=== PATIENT | male | born 1975 | race Caucasian/White ===

== ENCOUNTER 2019-12-26 01:35 | Emergency (ER) | payer OTHER ==
[~2019-12-26] VITALS: Ht 183 cm; Wt 66.0 kg
[2019-12-26 02:30] LABS: BASOPHILS # (AUTO) 0.1 10^3/uL (0.0-0.1); BASOPHILS % (AUTO) 0 % (0-10); EOSINOPHILS # (AUTO) 0.4 10^3/uL (0.0-0.3); EOSINOPHILS % (AUTO) 3 % (0-10); HEMATOCRIT 45 % (40-54); HEMOGLOBIN 15.4 g/dL (13.3-17.7); LYMPHOCYTES % (AUTO) 23 % (12-44); MEAN CORPUSCULAR HEMOGLOBIN 30 pg (25-34); MEAN CORPUSCULAR HGB CONC 34 g/dL (32-36); MEAN CORPUSCULAR VOLUME 87 fL (80-99); MEAN PLATELET VOLUME 8.5 fL (9.0-12.2); MONOCYTES # (AUTO) 0.9 10^3/uL (0.0-1.0); MONOCYTES % (AUTO) 5 % (0-12); NEUTROPHILS # (AUTO) 12.1 10^3/uL (1.8-7.8); NEUTROPHILS % (AUTO) 69 % (42-75); PLATELET COUNT 230 10^3/uL (130-400); WHITE BLOOD COUNT 17.6 10^3/uL (4.3-11.0)
[2019-12-26 02:33] LABS: CLARITY,URINE CLOUDY; COLOR,URINE RED; GLUCOSE, URINE (UA) NEGATIVE (NEGATIVE); KETONES,URINE NEGATIVE (NEGATIVE); LEUKOCYTE ESTERASE ,URINE NEGATIVE (NEGATIVE); NITRITE,URINE NEGATIVE (NEGATIVE); PH,URINE 5.5 (5-9); PROTEIN,URINE 1+ (NEGATIVE)
[2019-12-26 02:35] LABS: ALBUMIN 4.3 GM/DL (3.2-4.5); CHLORIDE 103 MMOL/L (98-107); POTASSIUM 3.3 MMOL/L (3.6-5.0); SODIUM 137 MMOL/L (135-145)
[2019-12-26] MEDS ORDERED: LACTATED RINGERS 1,000 ML IV ONE (02:35)
[2019-12-26 02:36] LABS: CALCIUM 8.7 MG/DL (8.5-10.1)
[2019-12-26 02:37] LABS: GLUCOSE 113 MG/DL (70-105)
[2019-12-26 02:38] LABS: TOTAL PROTEIN 6.9 GM/DL (6.4-8.2)
[2019-12-26 02:39] LABS: BACTERIA,URINE NEGATIVE /HPF; RBC,URINE TNTC /HPF
[2019-12-26 02:39] LABS: BILIRUBIN,TOTAL 0.3 MG/DL (0.1-1.0); CARBON DIOXIDE 23 MMOL/L (21-32)
[2019-12-26 02:41] LABS: ALKALINE PHOSPHATASE 106 U/L (40-136); CREATININE SERUM 0.94 MG/DL (0.60-1.30); GFR ESTIMATED > 60
[2019-12-26 02:42] LABS: BUN/CREATININE RATIO 18
[2019-12-26 02:44] LABS: ALANINE AMINOTRANSFERASE 34 U/L (0-55); LIPASE 31 U/L (8-78)
[2019-12-26] MEDS ORDERED: KETOROLAC 30 MG/ML VIAL IVP ONE (02:45)
[2019-12-26] MEDS ORDERED: ONDANSETRON 4 MG/2 ML (SDV) Z0FRAN IVP ONE (02:45)
[2019-12-26 02:48] LABS: NEUTROPHILS % (MANUAL) 69 %
[2019-12-26 02:49] LABS: EOSINOPHILS % (MANUAL) 1 %; LYMPHOCYTES % (MANUAL) 27 %; MONOCYTES % (MANUAL) 3 %; RBC MORPH NORMAL
[2019-12-26] MEDS ORDERED: ACHD5005 PO (03:57)
[2019-12-26] MEDS ORDERED: ONDA4TAB11 PO (03:57)
--- NOTE | 2019-12-26 03:59 | ED GU-Male ---
General Chief Complaint: Back Problems Stated Complaint: RT SIDE PAIN, VOMITING Nursing Triage Note: CONSTANT DULL RIGHT FLANK PAIN X2 DAYS. NO INJURY. Source: patient Exam Limitations: no limitations History of Present Illness Date Seen by Provider: Dec 26, 2019 Time Seen by Provider: 01:41 Initial Comments This 44-year-old gentleman presents to the emergency room with right flank pain that has been worsening for about 3 days. He developed hematuria tonight. He is afebrile. Denies respiratory symptoms. He has no history of renal stones. He has associated nausea and vomiting. Allergies and Home Medications Allergies Coded Allergies: No Known Drug Allergies (Unverified , 12/26/19) Home Medications Hydrocodone/Acetaminophen 1 Each Tablet, 1 EACH PO Q4H PRN for PAIN-MODERATE (5- 7) Prescribed by: NATY KAISER on 12/26/19 0358 Ondansetron 4 Mg Tab.rapdis, 4 MG PO Q4H PRN for NAUSEA/VOMITING Prescribed by: NATY KAISER on 12/26/19 0357 Patient Home Medication List Home Medication List Reviewed: Yes Review of Systems Review of Systems Constitutional: no symptoms reported EENTM: no symptoms reported Respiratory: no symptoms reported Cardiovascular: no symptoms reported Gastrointestinal: see HPI Genitourinary: see HPI Musculoskeletal: no symptoms reported Skin: no symptoms reported Psychiatric/Neurological: No Symptoms Reported Endocrine: No Symptoms Reported Hematologic/Lymphatic: No Symptoms Reported Past Qvhryxy-Ndclfw-Excgku Hx Past Med/Social Hx: Reviewed Nursing Past Med/Soc Hx Patient Social History Alcohol Use: Occasionally Uses Alcohol Beverage of Choice: Vodka Recreational Drug Use: No Smoking Status: Current Someday Smoker Type Used: Cigars 2nd Hand Smoke Exposure: Yes Recent Foreign Travel: No Contact w/Someone Who Travel: No Recent Infectious Disease Expo: No Recent Hopitalizations: No Immunizations Up To Date Tetanus Booster (TDap): Unknown Seasonal Allergies Seasonal Allergies: No Past Medical History Surgeries: Yes Orthopedic Respiratory: No Cardiac: No Neurological: No Genitourinary: No Gastrointestinal: No Musculoskeletal: No Endocrine: No HEENT: No Cancer: No Psychosocial: No Integumentary: No Blood Disorders: No Physical Exam Vital Signs Vital Signs - First Documented 12/26/19 01:48 Temp 37.0 Pulse 64 Resp 16 B/P (MAP) 143/94 (110) Pulse Ox 99 O2 Delivery Room Air Capillary Refill : Less Than 3 Seconds Height, Weight, BMI Height: '" Weight: lbs. oz. kg; 19.00 BMI Method: General Appearance: WD/WN, no apparent distress HEENT: normal ENT inspection Neck: normal inspection Cardiovascular: regular rate, rhythm, no edema, no murmur Respiratory: lungs clear, normal breath sounds, no respiratory distress Gastrointestinal: normal bowel sounds, soft; No distended, No guarding; tenderness (right flank) Back: normal inspection Extremities: normal inspection, no pedal edema Neurologic/Psychiatric: printed circuit board panels plater II-XII nml as tested, no motor/sensory deficits, alert, normal mood/affect, oriented x 3 Skin: normal color, warm/dry Progress/Results/Core Measures Suspected Sepsis Recent Fever Within 48 Hours: No Infection Criteria Present: None New/Unexplained Altered Menta: No Sepsis Screen: No Definite Risk SIRS Temperature: Pulse: 64 Respiratory Rate: 16 Laboratory Tests 12/26/19 01:55: White Blood Count 17.6H Blood Pressure 143 /94 Mean: 110 Laboratory Tests 12/26/19 01:55: Creatinine 0.94, Platelet Count 230, Total Bilirubin 0.3 Results/Orders Lab Results Laboratory Tests Test 12/26/19 01:53 12/26/19 01:55 Range/Units Urine Color RED H Urine Clarity CLOUDY Urine pH 5.5 5-9 Urine Specific [place] 1.025 H 1.016-1.022 Urine Protein 1+ H NEGATIVE Urine Glucose (UA) NEGATIVE NEGATIVE Urine Ketones NEGATIVE NEGATIVE Urine Nitrite NEGATIVE NEGATIVE Urine Bilirubin 1+ H NEGATIVE Urine Urobilinogen 1.0 < = 1.0 MG/DL Urine Leukocyte Esterase NEGATIVE NEGATIVE Urine RBC (Auto) 3+ H NEGATIVE Urine RBC TNTC H /HPF Urine WBC NONE /HPF Urine Crystals NONE /LPF Urine Bacteria NEGATIVE /HPF Urine Casts NONE /LPF Urine Mucus NEGATIVE /LPF Urine Culture Indicated NO White Blood Count 17.6 H 4.3-11.0 10^3/uL Red Blood Count 5.21 4.30-5.52 10^6/uL Hemoglobin 15.4 13.3-17.7 g/dL Hematocrit 45 40-54 % Mean Corpuscular Volume 87 80-99 fL Mean Corpuscular Hemoglobin 30 25-34 pg Mean Corpuscular Hemoglobin Concent 34 32-36 g/dL Red Cell Distribution Width 14.9 H 10.0-14.5 % Platelet Count 230 130-400 10^3/uL Mean Platelet Volume 8.5 L 9.0-12.2 fL Immature Granulocyte % (Auto) 1 % Neutrophils (%) (Auto) 69 42-75 % Lymphocytes (%) (Auto) 23 12-44 % Monocytes (%) (Auto) 5 0-12 % Eosinophils (%) (Auto) 3 0-10 % Basophils (%) (Auto) 0 0-10 % Neutrophils # (Auto) 12.1 H 1.8-7.8 10^3/uL Lymphocytes # (Auto) 4.0 1.0-4.0 10^3/uL Monocytes # (Auto) 0.9 0.0-1.0 10^3/uL Eosinophils # (Auto) 0.4 H 0.0-0.3 10^3/uL Basophils # (Auto) 0.1 0.0-0.1 10^3/uL Immature Granulocyte # (Auto) 0.1 0.0-0.1 10^3/uL Neutrophils % (Manual) 69 % Lymphocytes % (Manual) 27 % Monocytes % (Manual) 3 % Eosinophils % (Manual) 1 % Blood Morphology Comment NORMAL Sodium Level 137 135-145 MMOL/L Potassium Level 3.3 L 3.6-5.0 MMOL/L Chloride Level 103 98-107 MMOL/L Carbon Dioxide Level 23 21-32 MMOL/L Anion Gap 11 5-14 MMOL/L Blood Urea Nitrogen 17 7-18 MG/DL Creatinine 0.94 0.60-1.30 MG/DL Estimat Glomerular Filtration Rate > 60 BUN/Creatinine Ratio 18 Glucose Level 113 H 70-105 MG/DL Calcium Level 8.7 8.5-10.1 MG/DL Corrected Calcium 8.5 8.5-10.1 MG/DL Total Bilirubin 0.3 0.1-1.0 MG/DL Aspartate Amino Transf (AST/SGOT) 46 H 5-34 U/L Alanine Aminotransferase (ALT/SGPT) 34 0-55 U/L Alkaline Phosphatase 106 40-136 U/L C-Reactive Protein High Sensitivity 0.45 0.00-0.50 MG/DL Total Protein 6.9 6.4-8.2 GM/DL Albumin 4.3 3.2-4.5 GM/DL Lipase 31 8-78 U/L My Orders Orders - NATY LANZA MD Cbc With Automated Diff (12/26/19 01:41) Comprehensive Metabolic Panel (12/26/19 01:41) Hs C Reactive Protein (12/26/19 01:41) Lipase (12/26/19 01:41) Ua Culture If Indicated (12/26/19 01:41) Ed Iv/Invasive Line Start (12/26/19 01:41) Manual Differential (12/26/19 01:55) Ketorolac Injection (Toradol Injection) (12/26/19 02:45) Lactated Ringers (Lr 1000 Ml Iv Solution (12/26/19 02:35) Ondansetron Injection (Zofran Injectio (12/26/19 02:45) Ct Abd/Pelvis Wo(Kidney Stone) (12/26/19 02:36) Abdomen/Kub 1view (12/26/19 03:36) Medications Given in ED Vital Signs/I&O 12/26/19 12/26/19 01:48 04:12 Temp 37.0 37.2 Pulse 64 90 Resp 16 16 B/P (MAP) 143/94 (110) 129/85 (110) Pulse Ox 99 99 O2 Delivery Room Air Room Air Capillary Refill : Less Than 3 Seconds Blood Pressure Mean: 110 Progress Note : Progress Note Patient was treated with Toradol, IV fluids, and Zofran. Hematuria was noted on urinalysis. CT stone search was obtained revealing a right 4 mm proximal ureteral stone. Patient will follow-up with Dr. Masters. Diagnostic Imaging Diagonstic Imaging: CT Plain Films/CT/US/NM/MRI: abdomen, pelvis Comments CT abdomen and pelvis viewed by me and [employer] report reviewed. There is a 4 mm proximal right ureteral stone. Departure Impression Primary Impression: Right ureteral stone Disposition: 01 HOME, SELF-CARE Condition: Improved Departure-Patient Inst. Decision time for Depature: 03:55 Referrals: NO,LOCAL PHYSICIAN (PCP) Primary Care Physician HELGA MASTERS MD Patient Instructions: Kidney Stones (DC) Add. Discharge Instructions: Drink plenty of clear liquids. Use your pain and nausea medication as directed. Follow-up with a primary care provider or Dr. Masters as soon as possible. You may wish to call your insurance in the morning to determine if you can self refer to Dr. Masters. Strain your urine through the frontal and bring any stones collected to your follow-up appointment. Return to care if you have any further problems or concerns or if you have escalating symptoms. All discharge instructions reviewed with patient and/or family. Voiced understanding. Scripts Ondansetron (Ondansetron Odt) 4 Mg Tab.rapdis 4 MG PO Q4H PRN for NAUSEA/VOMITING, #10 TAB Prov: NATY LANZA MD 12/26/19 Hydrocodone/Acetaminophen (Hydrocodone-Acetamin 5-325 mg) 1 Each Tablet 1 EACH PO Q4H PRN for PAIN-MODERATE (5-7), #10 TAB Prov: NATY LANZA MD 12/26/19 Copy Copies To 1: HELGA MASTERS MD, JOSHUA T MD Dec 26, 2019 03:59
[2019-12-26 04:12] VITALS: BP 129/85
--- NOTE | 2019-12-26 05:07 | Diagnostic Imaging Report ---
Indication: Right flank pain x2 days KUB 4 1:00 AM Lung bases are clear. Bowel gas pattern is normal. There is 1.5 cm calculus projecting over the lower pole of left kidney. There is a 3 mm calculus projects over the right proximal ureter. IMPRESSION: Left nephrolithiasis. Proximal right ureteral calculus. Dictated by: Dictated on workstation # [id number]
--- NOTE | 2019-12-26 05:10 | Diagnostic Imaging Report ---
PROCEDURE: CT urinary tract, rule out kidney stone. TECHNIQUE: Multiple contiguous axial images were obtained through the abdomen and pelvis without the use of intravenous contrast. Auto Exposure Controls were utilized during the CT exam to meet ALARA standards for radiation dose reduction. INDICATION: Right flank pain 2 the lung bases are clear. Liver appears normal. Gallbladder is present. Pancreas appears normal. Spleen appears normal. There is a 2 mm calculus in the lower pole calyx of the right kidney. There is a 3 mm calculus in the right proximal ureter causing mild hydronephrosis of the right kidney. There is a cluster stones in the inferior pole calyx of the left kidney. Largest of these measures 8 mm in diameter. There is no left hydronephrosis. There is calcific atherosclerosis of aorta. Postoperative changes from left lower abdomen hernia repair. Urinary bladder appears normal. Large and small intestine appear normal. IMPRESSION: Bilateral nephrolithiasis. 3 mm calculus right proximal ureter causing hydronephrosis. I agree with preliminary interpretation. Dictated by: Dictated on workstation # [id number]
[2019-12-26 06:29] LABS: BILIRUBIN,URINE 1+ (NEGATIVE)
== END 2019-12-26 04:18 | disposition home or self-care (01) ==
LOC: EDUNIT# 01:35 → ER 01:39
DX: N13.2 Hydronephrosis with renal and ureteral calculous obstruction (principal); F17.290 Nicotine dependence, other tobacco product, uncomplicated
CPT/HCPCS: 36415; 74018; 74176; 80053; 81000; 83690; 85007; 85027; 86141

== ENCOUNTER → 2019-12-27 | Outpatient (CLI) | payer OTHER ==
[~2019-12-27] MED LIST: ACHD5005 PO; ONDA4TAB11 PO; PHEN-640 PO; SULF1TAB35 PO; TMSL.4C PO; TRM50T PO
--- NOTE | 2019-12-27 09:56 | Diagnostic Imaging Report ---
EXAMINATION: Abdomen 1 view HISTORY: RENAL STONES COMPARISON: Abdominal radiograph 12/26/2019. FINDINGS: There is moderate amount of gas and stool throughout the colon. Nonobstructive bowel gas pattern. No radiopaque foreign body. The lung bases are clear. The osseous structures are intact. Multiple unchanged coils overlying the left pelvis. Stable appearance of multiple left calcified opacities overlying the left kidney measuring up to 0.9 cm. Unchanged 0.5 cm calcified opacity overlying the right proximal ureter. IMPRESSION: Stable left renal calculi measuring up to 0.9 cm. Stable 0.5 cm calculus within the proximal right ureter. Dictated by: Dictated on workstation # [id number]
== END ==
LOC: RAD 09:23
PROVIDERS: ATTEND Urology
DX: N20.2 Calculus of kidney with calculus of ureter (principal)
CPT/HCPCS: 74018

== ENCOUNTER → 2019-12-31 | Outpatient (CLI) | payer OTHER | LOC: LABNPT 06:21 | PROVIDERS: ATTEND Urology | DX: Z01.818 Encounter for other preprocedural examination (principal); N20.2 Calculus of kidney with calculus of ureter; Z20.828 Contact with and (suspected) exposure to other viral communicable diseases ==

== ENCOUNTER → 2019-12-31 | Outpatient (CLI) | payer OTHER | LOC: LAB FS 10:36 | PROVIDERS: ATTEND Urology | DX: Z01.818 Encounter for other preprocedural examination (principal); Z01.812 Encounter for preprocedural laboratory examination; N20.2 Calculus of kidney with calculus of ureter; Z20.828 Contact with and (suspected) exposure to other viral communicable diseases | CPT/HCPCS: 87635 ==

== ENCOUNTER 2020-01-01 06:51 | Day surgery (SDC) | payer OTHER ==
[2020-01-01] VITALS (9 sets, daily range): BP systolic 111–130; BP diastolic 60–86
[~2020-01-01] VITALS: Ht 182.9 cm; Wt 65.9 kg
[~2020-01-01 06:51] MED LIST changes: -PHEN-640 PO; -SULF1TAB35 PO; -TMSL.4C PO; -TRM50T PO
--- NOTE | 2020-01-01 07:11 | Progress Note-Pre Operative ---
Pre-Operative Progress Note H&P Reviewed The H&P was reviewed, patient examined and no changes noted. Date Seen by Provider: Jan 01, 2020 Time Seen by Provider: 07:11 Date H&P Reviewed: Jan 01, 2020 Time H&P Reviewed: 07:11 Pre-Operative Diagnosis: RT PROXIMAL URETERAL AND BILATERAL RENAL STONES HELGA MASTERS MD Jan 01, 2020 07:11
[2020-01-01] MEDS ORDERED: LACTATED RINGERS 1,000 ML IV PRN (08:09)
[2020-01-01] MEDS ORDERED: cefTRIAXone FOR IV USE 1,000 MG in WATER (STERILE) FOR INJECTION 10 ML IV ONE (08:15)
--- NOTE | 2020-01-01 08:18 | Diagnostic Imaging Report ---
INDICATION: Preop for left sided lithotripsy. Time of exam 7:57 AM Correlation is made with prior radiograph from 12/27/2019. Bowel gas pattern is unremarkable. Calcific densities overlying the region of the lower pole left kidney are again noted. There is a right pelvic calcification, not present on prior study and may represent previously noted calculus in the region of the proximal right ureter and prior radiograph. Bowel gas pattern is unremarkable. IMPRESSION: 1. Probable calculus in the region of the distal right ureter. 2. Calculi overlie the lower pole left kidney, similar to prior exam. Dictated by: Dictated on workstation # [id number]
[2020-01-01] MEDS ORDERED: MIDAZOLAM 2 MG/2 ML (VERSED) VIAL ONE (10:01)
[2020-01-01] MEDS ORDERED: fentaNYL INJECTION 100 MCG/2 ML AMP ONE (10:01)
[2020-01-01] MEDS ORDERED: proPOfol 200 MG/20 ML (DIPRIVAN) VIAL IV ONE (10:01)
[2020-01-01] MEDS ORDERED: ONDANSETRON 4 MG/2 ML (SDV) Z0FRAN ONE (10:01)
[2020-01-01] MEDS ORDERED: LIDOCAINE PF 2% 5 ML (XYLOCAINE) VIAL ONE (10:01)
[2020-01-01] MEDS ORDERED: SEVOFLURANE (ULTANE) 15 ML INHAL SOLN ONE ×5 (10:01→12:03)
[2020-01-01] MEDS ORDERED: FUROSEMIDE 40 MG/4 ML INJ (LASIX) ONE (10:07)
[2020-01-01] MEDS ORDERED: KETOROLAC 30 MG/ML VIAL ONE (10:07)
[2020-01-01] MEDS ORDERED: ROCURONIUM 10 MG/ML 5 ML SYRINGE IV ONE ×3 (10:07→12:03)
[2020-01-01] MEDS ORDERED: GLYCOPYRROLATE 0.2 MG/ML (ROBINUL) 2 ML VIAL ONE (10:07)
[2020-01-01] MEDS ORDERED: NEOSTIGMINE 3 MG/3 ML VIAL ONE (10:07)
--- NOTE | 2020-01-01 10:17 | Progress Note-Post Operative ---
Post-Operative Progess Note Surgeon (s)/Counseling Program Leader (s) Surgeon HELGA MASTERS MD Counseling Program Leader: NONE Pre-Operative Diagnosis RT PROXIMAL URETERAL AND BILATERAL RENAL STONES Post-Operative Diagnosis SAME Procedure & Operative Findings Date of Procedure 01/01/20 Procedure Performed/Findings CYSTOSCOPY, RT URETERAL CATHETERIZATION, RETROGRADE UROGRAM, AND RT ESWL Anesthesia Type GENERAL Estimated Blood Loss Estimated blood loss (mL): NONE Specimens/Packing Specimens Removed NONE Packing: NONE HELGA MASTERS MD Jan 01, 2020 10:17
--- NOTE | 2020-01-01 10:20 | Discharge Inst-Urology ---
Discharge Inst-Urology Reconcile Patient Problems Problems Reviewed?: Yes Final Diagnosis RT DISTAL URETERAL AND LT RENAL STONES Patient Instructions/Follow Up Plan/Assessment/Instructions Please make appointment to been seen in office Friday 01/12, KUB prior to it. KUB on way home Post ESWL instructions Increase oral fluids for 48 hours and then as needed. Diet and Activity as tolerated. If questions or concerns contact your physician Or seek help at emergency department. HELGA MASTERS MD Jan 01, 2020 10:20
[2020-01-01] MEDS ORDERED: morphine INJ 10 MG/ML 1ML (SYR OR VIAL) IVP ONE (12:00)
[2020-01-01] MEDS ORDERED: ONDANSETRON 4 MG/2 ML (SDV) Z0FRAN IVP PRN (12:00)
[2020-01-01] MEDS ORDERED: IOPAMIDOL 61% 30 ML (ISOVUE 300) VIAL ONE (12:06)
[2020-01-01] MEDS ORDERED: TRM50T PO (13:10)
[2020-01-01] MEDS ORDERED: TMSL.4C PO (13:10)
[2020-01-01] MEDS ORDERED: SULF1TAB35 PO (13:10)
[2020-01-01] MEDS ORDERED: PHEN-640 PO (13:10)
--- NOTE | 2020-01-01 14:10 | Diagnostic Imaging Report ---
INDICATION: Status post lithotripsy. Time of exam 1:40 PM Correlation is made with prior study earlier same day. Several calcific fragments are identified overlying the region of the lower pole left kidney. There may be some calcifications in the midportion left kidney as well. This area is somewhat obscured by overlying bowel gas. No calculi along the course of the left ureter is identified. Right pelvic calcification is in similar position to earlier today. Bowel gas pattern is unremarkable. IMPRESSION: Abdominal calcifications, as described. There are several fragments overlying the lower pole left kidney. Dictated by: Dictated on workstation # [id number]
--- NOTE | 2020-01-01 19:42 | OPERATIVE REPORT ---
DATE OF SERVICE: 01/01/2020 PREOPERATIVE DIAGNOSIS: Right distal ureteral stone and bilateral renal stones. POSTOPERATIVE DIAGNOSIS: Right distal ureteral stone and bilateral renal stones. OPERATION PERFORMED: Cystoscopy, right ureteral catheterization and retrograde urogram and ESWL. SURGEON: Tommy Masters MD ANESTHESIA: General. COMPLICATIONS: None. DESCRIPTION OF PROCEDURE: Under satisfactory general anesthesia, the patient in lithotomy position on the cystoscopy suite. Genitalia were prepped and draped in the usual sterile fashion. Cystoscope was introduced under vision. The anterior urethra was normal. The prostate was nonobstructing. Bladder neck was open. The ureteral orifices were somewhat displaced upward and laterally. I was able to dilate the right ureteral orifice intramural portion and I could not pass the ureteroscope because of the position of the ureteral orifices. I injected contrast and confirmed the presence of a fishhook deformity on the right side and could explain why I could not pass the ureteroscope. I could see the stone as a filling defect in the distal portion of the ureter. I left ureteral catheter in the ureter in order to inject contrast for visualization during ESWL. I moved the patient to the ESWL suite on the special table supine and localized the ureteral stone, both by fluoroscopy as well as by retrograde injection of contrast. We gave the patient 3000 shocks at kV of 8 until we could not see any filling defect anymore and flowing of the contrast very easily with staining of the tube, which confirmed the fragmentation of the stone at least fluoroscopically. The patient received 40 mg of Lasix, 30 mg of Toradol IV at the end of the procedure. He tolerated the procedure and anesthesia well and was sent to recovery room in stable condition. Job ID: [id number] DocumentID: [id number] Dictated Date: 01/01/2020 12:00:02 Professor Of Anthropology Date: 01/01/2020 19:42:24 Dictated By: TOMMY MASTERS MD
--- NOTE | 2020-01-06 09:55 | Anesthesia-General Post-Op ---
General Significant Intra-Op Events Notes Late entry for 12/31 @ 1300 Patient Condition Mental Status/LOC: Same as Preop Cardiovascular: Satisfactory Nausea/Vomiting: Absent Respiratory: Satisfactory Pain: Controlled Complications: Absent Post Op Complications Complications None Follow Up Care/Instructions Patient Instructions None needed. Anesthesia/Patient Condition Patient Condition Patient is doing well, no complaints, stable vital signs, no apparent adverse anesthesia problems. No complications reported per nursing. NEIL MUJICA CRNA Jan 06, 2020 09:55
== END 2020-01-01 14:15 | disposition home or self-care (01) ==
LOC: SDC 06:51
PROVIDERS: ATTEND Urology
DX: N20.2 Calculus of kidney with calculus of ureter (principal); N40.0 Benign prostatic hyperplasia without lower urinary tract symptoms; F17.290 Nicotine dependence, other tobacco product, uncomplicated; Z11.2 Encounter for screening for other bacterial diseases
CPT/HCPCS: 74018; 76000; 87081

== ENCOUNTER 2020-01-09 05:39 | Outpatient (RCR) | payer OTHER ==
[~2020-01-09] VITALS: Ht 182.9 cm; Wt 65.9 kg
[~2020-01-09 05:39] MED LIST changes: +PHEN-640 PO; +SULF1TAB35 PO; +TMSL.4C PO; +TRM50T PO
== END 2020-01-09 15:42 | disposition home or self-care (01) ==
LOC: PREOP 05:39
PROVIDERS: ATTEND Urology
DX: Z01.818 Encounter for other preprocedural examination (principal)

== ENCOUNTER → 2020-01-10 | Outpatient (CLI) | payer OTHER ==
[~2020-01-10] MED LIST changes: +NITR-65 PO
== END ==
LOC: LAB FS 10:28
PROVIDERS: ATTEND Urology
DX: Z01.812 Encounter for preprocedural laboratory examination (principal); Z20.828 Contact with and (suspected) exposure to other viral communicable diseases
CPT/HCPCS: 87635

== ENCOUNTER → 2020-01-13 | Outpatient (CLI) | payer OTHER ==
--- NOTE | 2020-01-13 14:36 | Diagnostic Imaging Report ---
INDICATION: Right lower ureteral calculus. Status post lithotripsy. COMPARISON: 01/01/2020 FINDINGS: Single frontal radiographic view of the abdomen was obtained and demonstrates interval resolution of previously described calculus projecting over the pelvis to the right lateral of midline. A large 1.5 cm calculus is again identified projecting over the left renal shadow. Postsurgical changes of previous ventral hernia repair are again noted within the left lower pelvis. Small bowel loops are nondistended. Moderate air and stool is seen scattered throughout the colon. IMPRESSION: 1. Interval resolution of previously described right ureteral calculus. 2. Persistent large left ureteral calculus. Dictated by: Dictated on workstation # [id number]
== END ==
LOC: RAD 14:00
PROVIDERS: ATTEND Urology
DX: N20.1 Calculus of ureter (principal); Z20.828 Contact with and (suspected) exposure to other viral communicable diseases; Z98.890 Other specified postprocedural states
CPT/HCPCS: 74018

== ENCOUNTER 2020-01-14 06:02 | Day surgery (SDC) | payer OTHER ==
[~2020-01-14] VITALS: Ht 182.9 cm; Wt 65.9 kg
[2020-01-14] VITALS (9 sets, daily range): BP systolic 96–154; BP diastolic 63–97
[~2020-01-14 06:02] MED LIST changes: -NITR-65 PO
[2020-01-14] MEDS ORDERED: cefTRIAXone FOR IV USE 1,000 MG in WATER (STERILE) FOR INJECTION 10 ML IV ONE (06:15)
[2020-01-14] MEDS ORDERED: proPOfol 200 MG/20 ML (DIPRIVAN) VIAL IV ONE (06:34)
[2020-01-14] MEDS ORDERED: ONDANSETRON 4 MG/2 ML (SDV) Z0FRAN ONE (06:34)
[2020-01-14] MEDS ORDERED: fentaNYL INJECTION 100 MCG/2 ML AMP ONE (06:34)
[2020-01-14] MEDS ORDERED: LIDOCAINE PF 2% 5 ML (XYLOCAINE) VIAL ONE (06:34)
[2020-01-14] MEDS ORDERED: MIDAZOLAM 2 MG/2 ML (VERSED) VIAL ONE (06:34)
[2020-01-14] MEDS ORDERED: SEVOFLURANE (ULTANE) 15 ML INHAL SOLN ONE ×4 (06:35→08:12)
[2020-01-14] MEDS: LACTATED RINGERS 1,000 ML IV PRN ×2 (06:52→08:55)
--- NOTE | 2020-01-14 07:25 | Progress Note-Pre Operative ---
Pre-Operative Progress Note H&P Reviewed The H&P was reviewed, patient examined and no changes noted. Date Seen by Provider: Jan 14, 2020 Time Seen by Provider: 07:24 Date H&P Reviewed: Jan 14, 2020 Time H&P Reviewed: 07:24 Pre-Operative Diagnosis: LT RENAL STONES HELGA MASTERS MD Jan 14, 2020 07:24
--- NOTE | 2020-01-14 07:39 | Diagnostic Imaging Report ---
Clinical indications: Patient ESWL. Exam: KUB x-ray. Comparison: KUB x-ray dated 01/13/2020. Findings: There is no significant change to the slightly fragmented appearing group of calcifications overlying the left mid abdominal region which measured at 1.5 cm. This calcification was noted to overlie the inferior aspect of left kidney. There are no other urinary tract stones seen. There is a nonobstructed bowel gas pattern. There is no evidence of abdominal free air. Surgical tacks are seen overlying left pelvis region which may be related to hernia repair. The visualized bones and extra abdominal soft tissues are unremarkable. Impression: 1: There is stable amorphous group of calcifications overlying the left mid abdominal region which correlates to stones overlying the inferior portion of the left kidney. 2: There are no other urinary tract stones seen. Dictated by: Dictated on workstation # [id number]
[2020-01-14] MEDS ORDERED: morphine INJ 10 MG/ML 1ML (SYR OR VIAL) IVP ONE (07:45)
[2020-01-14] MEDS ORDERED: fentaNYL INJECTION 100 MCG/2 ML AMP IVP ONE (07:45)
[2020-01-14] MEDS ORDERED: MEPERIDINE (DEMEROL) INJ 50 MG/ML IVP ONE (07:45)
[2020-01-14] MEDS ORDERED: ONDANSETRON 4 MG/2 ML (SDV) Z0FRAN IVP PRN (07:45)
--- NOTE | 2020-01-14 07:51 | Progress Note-Post Operative ---
Post-Operative Progess Note Surgeon (s)/Civil Drafter (s) Surgeon HELGA MASTERS MD Civil Drafter: NONE Pre-Operative Diagnosis LT RENAL STONES Post-Operative Diagnosis SAME Procedure & Operative Findings Date of Procedure 01/14/20 Procedure Performed/Findings LT ESWL Anesthesia Type GENERAL Estimated Blood Loss Estimated blood loss (mL): NONE Specimens/Packing Specimens Removed NONE Packing: NONE HEGLA MASTERS MD Jan 14, 2020 07:51
--- NOTE | 2020-01-14 07:53 | Discharge Inst-Urology ---
Discharge Inst-Urology Reconcile Patient Problems Problems Reviewed?: Yes Final Diagnosis LT RENAL STONES Patient Instructions/Follow Up Plan/Assessment/Instructions Please make appointment to been seen in office Friday 01/26, KUB prior to it. KUB on way home Post ESWL instructions Increase oral fluids for 48 hours and then as needed. Diet and Activity as tolerated. If questions or concerns contact your physician Or seek help at emergency department. HELGA MASTERS MD Jan 14, 2020 07:53
[2020-01-14] MEDS ORDERED: KETOROLAC 30 MG/ML VIAL ONE (08:21)
[2020-01-14] MEDS ORDERED: FUROSEMIDE 40 MG/4 ML INJ (LASIX) ONE (08:21)
--- NOTE | 2020-01-14 09:10 | Anesthesia-General Post-Op ---
General Patient Condition Mental Status/LOC: Same as Preop Cardiovascular: Satisfactory Nausea/Vomiting: Absent Respiratory: Satisfactory Pain: Controlled Complications: Absent Post Op Complications Complications None Follow Up Care/Instructions Patient Instructions None needed. Anesthesia/Patient Condition Patient Condition Patient is doing well, no complaints, stable vital signs, no apparent adverse anesthesia problems. No complications reported per nursing. CARMEN ALMAGUER CRNA Jan 14, 2020 09:10
[2020-01-14] MEDS ORDERED: TMSL.4C PO (09:23)
[2020-01-14] MEDS ORDERED: NITR-65 PO (09:23)
[2020-01-14] MEDS ORDERED: TRM50T PO (09:23)
--- NOTE | 2020-01-14 09:55 | Diagnostic Imaging Report ---
Clinical indication: Post ESWL. Exam: KUB x-ray. Comparison: KUB x-ray dated 01/14/2020. Findings and impression: 1: There is interval resolution of the previously seen group of calcifications overlying the inferior pole of the left kidney. There is no definite calcifications seen overlying the bladder or ureters. 2: Nonobstructed bowel gas pattern. 3: The remainder of this exam shows no significant interval change compared to the prior study of comparison. Dictated by: Dictated on workstation # [id number]
--- NOTE | 2020-01-14 10:33 | OPERATIVE REPORT ---
DATE OF SERVICE: 01/14/2020 PREOPERATIVE DIAGNOSIS: Left renal stones. POSTOPERATIVE DIAGNOSIS: Left renal stones. OPERATION PERFORMED: Left ESWL. SURGEON: Tommy Masters MD. ANESTHESIA: General. COMPLICATIONS: None. DESCRIPTION OF PROCEDURE: Under satisfactory general anesthesia and the patient in supine position on the ESWL table, the left renal stones were localized. Shocks were delivered at kV of 6. Total of 3000 shocks showed good fragmentation and layering and widening of the stone, which looked much fainter. The patient received 40 mg of Lasix and 30 mg of Toradol IV at the end of the procedure. He tolerated the procedure and anesthesia well and was sent to recovery room in a stable condition. Job ID: [id number] DocumentID: [id number] Dictated Date: 01/14/2020 08:16:05 Shank Boner Date: 01/14/2020 10:33:15 Dictated By: TOMMY MASTERS MD
== END 2020-01-14 10:35 | disposition home or self-care (01) ==
LOC: SDC 06:02
PROVIDERS: ATTEND Urology
DX: N13.2 Hydronephrosis with renal and ureteral calculous obstruction (principal); F17.210 Nicotine dependence, cigarettes, uncomplicated
CPT/HCPCS: 74018; 87081

== ENCOUNTER → 2020-01-27 | Outpatient (CLI) | payer OTHER ==
[~2020-01-27] MED LIST changes: +NITR-65 PO
--- NOTE | 2020-01-27 13:42 | Diagnostic Imaging Report ---
INDICATION: Nephrolithiasis. KUB at 1:16 p.m. There appears to be fragmented calculi projecting over the inferior pole of the left kidney. IMPRESSION: Left nephrolithiasis. Dictated by: Dictated on workstation # [id number]
== END ==
LOC: RAD 13:03
PROVIDERS: ATTEND Urology
DX: N20.0 Calculus of kidney (principal)
CPT/HCPCS: 74018

== ENCOUNTER 2020-02-01 13:45 | Outpatient (RCR) | payer OTHER | END 2020-04-26 | disposition home or self-care (01) | LOC: LAB 13:45 | PROVIDERS: ATTEND Urology | DX: N20.9 Urinary calculus, unspecified (principal) | CPT/HCPCS: 36415; 82140; 82340; 82507; 82570; 83735; 83945; 83986; 84105; 84133; 84300; 84392; 84560 ==

== ENCOUNTER → 2020-02-24 | Outpatient (CLI) | payer OTHER ==
--- NOTE | 2020-02-24 16:56 | Diagnostic Imaging Report ---
HISTORY: Left renal stone post lithotripsy COMPARISON: 01/27/2020 TECHNIQUE: Frontal view of the abdomen FINDINGS: Redemonstrated is a fragmented calculus projecting over the inferior pole of the left kidney which appears unchanged since the prior exam. Abdominal hernia repair coils are noted in the left lower quadrant. No distended loops of large or small bowel are seen. There is no large collection of free air. IMPRESSION: 1. Redemonstrated fragmented calculus at the inferior pole of the left kidney appears unchanged. Dictated by: Dictated on workstation # [id number]
== END ==
LOC: RAD 15:05
PROVIDERS: ATTEND Urology
DX: N20.0 Calculus of kidney (principal); Z98.890 Other specified postprocedural states; Z20.828 Contact with and (suspected) exposure to other viral communicable diseases
CPT/HCPCS: 74018

== ENCOUNTER → 2021-10-31 | Outpatient (CLI) | payer OTHER ==
[~2021-10-31] MED LIST changes: -SULF1TAB35 PO; +SULF1TAB38 PO
[2021-10-31 14:09] LABS: CALCIUM 9.6 MG/DL (8.5-10.1); CREATININE SERUM 0.78 MG/DL (0.60-1.30); POTASSIUM 4.1 MMOL/L (3.6-5.0)
== END ==
LOC: LAB 13:41
PROVIDERS: ATTEND Urology
DX: E87.6 Hypokalemia (principal); N40.0 Benign prostatic hyperplasia without lower urinary tract symptoms
CPT/HCPCS: 36415; 80048